=== PATIENT | male | born 1935 | race Caucasian/White ===

== ENCOUNTER 2016-05-21 16:16 | Emergency (ER) | payer OTHER, BC ==
[~2016-05-21] VITALS: Ht 170.2 cm; Wt 72.2 kg
[~2016-05-21 16:16] MED LIST: ADULT LOW DOSE81 M1 PO; ASPIRIN81 M1 PO; CEFTIN250 MG PO; CIPRO500 MG PO; COUMADIN,JANTOVE2 MG PO; FINASTERIDE5 MG PO; FLOMAX0.4 M1 PO; LISINOPRIL5 MG PO; LO-DOSE ASPIRIN81 M1 PO; METOPROLOL SUCC25 MG PO; NIASPAN,SLO-N1000 MG PO; PLAVIX75 MG PO; PRAVACHOL80 MG PO; TAMSULOSIN HCL0.4 MG PO; ULTRAM50 MG PO; VITAMIN B-12250 MCG PO; VITAMIN C100 MG PO; ZANTAC150 MG PO
[2016-05-21 17:37] LABS: ADD MIUA? YES; BILIRUBIN NEGATIVE; BLOOD MODERATE; COLOR YELLOW ((YELLOW)); GLUCOSE (STRIP) NEGATIVE; KETONES NEGATIVE; LEUKOCYTES LARGE; NITRITE POSITIVE; PROTEIN (STRIP) NEGATIVE; SPECIFIC GRAVITY 1.009 (1.000-1.030); UROBILINOGEN 0.2 MG/DL (0.2-1.0)
[2016-05-21 18:48] LABS: BACTERIA 3+; CASTS NONE SEEN /LPF; CRYSTALS NONE SEEN; EPITHELIAL CELLS NONE SEEN; MUCUS NONE SEEN; RED BLOOD CELLS 40-50 /HPF (0-5); UCUL ADDED? YES
[2016-05-21 20:24] VITALS: BP 118/68
== END 2016-05-21 20:25 ==
LOC: EME 16:16
PROVIDERS: Emergency Medicine
PROC: 0T9B70Z Drainage of Bladder with Drainage Device, Via Natural or Artificial Opening (ICD-10-PCS; principal; 2016-05-21)
DX: R33.9 Retention of urine, unspecified (principal); E11.9 Type 2 diabetes mellitus without complications; I10 Essential (primary) hypertension; I25.2 Old myocardial infarction; Z86.73 Personal history of transient ischemic attack (TIA), and cerebral infarction without residual deficits; Z87.440 Personal history of urinary (tract) infections; Z95.1 Presence of aortocoronary bypass graft; Z98.1 Arthrodesis status; Z79.82 Long term (current) use of aspirin; Z87.891 Personal history of nicotine dependence
CPT/HCPCS: 81003; 87077; 87086; 87186; 99281; 99284

== ENCOUNTER 2016-06-18 17:42 | Emergency (ER) | payer OTHER ==
[~2016-06-18] VITALS: Ht 170.2 cm; Wt 66.2 kg
[2016-06-18] MEDS ORDERED: FLOMAX0.4 MG PO (17:55)
[2016-06-18] MEDS ORDERED: IRON325 MG PO (17:55)
[2016-06-18] MEDS ORDERED: SENNA8.6 MG PO (17:56)
[2016-06-18] MEDS ORDERED: ERGOCALCIF50000 UNIT PO (17:57)
[2016-06-18] MEDS ORDERED: WARFARIN SODIU2.5 MG PO (17:58)
[2016-06-18] MEDS ORDERED: WARFARIN SODIUM3 MG PO (17:59)
[2016-06-18] MEDS ORDERED: OXAYDO5 MG PO ×2 (18:00→18:01)
[2016-06-18] MEDS ORDERED: PERCOCET 5/31 TABLET PO (18:13)
[2016-06-18] MEDS ORDERED: FLEXERIL5 MG PO (18:14)
[2016-06-18] MEDS ORDERED: DULCOLAX10 MG PR (18:14)
[2016-06-18 20:03] LABS: HEMATOCRIT 30.9 % (38.0-50.0); MCH 28.4 PG (29.0-34.0); MCHC 32.4 G/DL (30.0-36.0); MCV 87.8 FL (86-99); MEAN PLAT.VOLUME 10.3 uM^3 (9.0-12.4); PLATELET COUNT 274 K/uL (156-360); RBC DIS.WIDTH-CV 14.6 % (11.8-14.6); RBC DIS.WIDTH-SD 45.9 % (39-53); RED BLOOD COUNT 3.52 M/uL (4.00-5.50); WHITE BLOOD COUNT 7.6 K/uL (4.1-10.2)
[2016-06-18 20:19] LABS: CHLORIDE 102 mEq/L (99-109); POTASSIUM 4.2 mEq/L (3.7-5.4); SODIUM 135 mEq/L (136-147)
[2016-06-18 20:20] LABS: GLUCOSE 107 mg/dL (70-99)
[2016-06-18 20:22] LABS: ANION GAP 9 MEQ/L (2-14)
[2016-06-18 20:24] LABS: GFR ESTIMATE (CALCULATED) > 59 mL/min/
[2016-06-18 20:25] LABS: UREA NITROGEN (BUN) 17 mg/dL (9-23)
[2016-06-18 20:55] LABS: INFLUENZA A VIRAL ANTIGEN POSITIVE; INFLUENZA B VIRAL ANTIGEN NEGATIVE
[2016-06-18] MEDS ORDERED: TAMIFLU75 MG PO (22:14)
[2016-06-19 00:20] VITALS: BP 109/63
== END 2016-06-19 00:30 ==
LOC: EME 17:42
PROVIDERS: Emergency Medicine
DX: J10.1 Influenza due to other identified influenza virus with other respiratory manifestations (principal); R50.9 Fever, unspecified; S00.91XA Abrasion of unspecified part of head, initial encounter; W07.XXXA Fall from chair, initial encounter; I10 Essential (primary) hypertension; I25.2 Old myocardial infarction; Z86.73 Personal history of transient ischemic attack (TIA), and cerebral infarction without residual deficits; Z95.1 Presence of aortocoronary bypass graft; Z87.891 Personal history of nicotine dependence; Z79.01 Long term (current) use of anticoagulants
CPT/HCPCS: 71010; 80048; 81003; 83605; 85027; 87040; 87502; 99281; 99285

== ENCOUNTER 2016-07-18 19:10 | Emergency (ER) | payer OTHER ==
[~2016-07-18] VITALS: Ht 170.2 cm; Wt 67.9 kg
[~2016-07-18 19:10] MED LIST changes: +DULCOLAX10 MG PR; +ERGOCALCIF50000 UNIT PO; +FLEXERIL5 MG PO; +FLOMAX0.4 MG PO; +IRON325 MG PO; +OXAYDO5 MG PO; +PERCOCET 5/31 TABLET PO; +SENNA8.6 MG PO; +TAMIFLU75 MG PO; +WARFARIN SODIU2.5 MG PO; +WARFARIN SODIUM3 MG PO
[2016-07-18 20:35] LABS: HEMATOCRIT 36.3 % (38.0-50.0); MCH 27.4 PG (29.0-34.0); MCHC 31.1 G/DL (30.0-36.0); MCV 87.9 FL (86-99); MEAN PLAT.VOLUME 10.3 uM^3 (9.0-12.4); PLATELET COUNT 344 K/uL (156-360); RBC DIS.WIDTH-CV 14.8 % (11.8-14.6); RBC DIS.WIDTH-SD 47.2 % (39-53); RED BLOOD COUNT 4.13 M/uL (4.00-5.50); WHITE BLOOD COUNT 7.6 K/uL (4.1-10.2)
[2016-07-18 20:43] LABS: CHLORIDE 104 mEq/L (99-109); POTASSIUM 4.4 mEq/L (3.7-5.4); SODIUM 142 mEq/L (136-147)
[2016-07-18 20:45] LABS: GLUCOSE 160 mg/dL (70-99)
[2016-07-18 20:46] LABS: ANION GAP 10 MEQ/L (2-14)
[2016-07-18 20:48] LABS: GFR ESTIMATE (CALCULATED) > 59 mL/min/
[2016-07-18 20:49] LABS: UREA NITROGEN (BUN) 13 mg/dL (9-23)
[2016-07-18 20:55] LABS: TROP-I INTERPRETATION NEGATIVE; TROPONIN-I < 0.01 ng/mL (0.0-0.30)
[2016-07-18] MEDS ORDERED: TRAMADOL HCL50 MG PO (22:01)
[2016-07-18 22:19] LABS: INTER. NORMALIZED RATIO 1.4
[2016-07-18 22:27] VITALS: BP 129/82
== END 2016-07-18 23:11 | disposition home or self-care (01) ==
LOC: EME 19:10
PROVIDERS: Emergency Medicine
DX: S09.90XA Unspecified injury of head, initial encounter (principal); S46.002A Unspecified injury of muscle(s) and tendon(s) of the rotator cuff of left shoulder, initial encounter; S60.512A Abrasion of left hand, initial encounter; W19.XXXA Unspecified fall, initial encounter; Y92.009 Unspecified place in unspecified non-institutional (private) residence as the place of occurrence of the external cause; Z79.01 Long term (current) use of anticoagulants; E78.5 Hyperlipidemia, unspecified; I10 Essential (primary) hypertension; I25.2 Old myocardial infarction; Z95.1 Presence of aortocoronary bypass graft; Z95.5 Presence of coronary angioplasty implant and graft; Z86.73 Personal history of transient ischemic attack (TIA), and cerebral infarction without residual deficits; Z98.1 Arthrodesis status; Z87.891 Personal history of nicotine dependence
CPT/HCPCS: 70450; 71010; 73030; 73130; 73502; 80048; 84484; 85027; 85610; 93005; 99281; 99285; J3010

== ENCOUNTER 2016-08-12 16:07 | Emergency (ER) | payer OTHER ==
[~2016-08-12] VITALS: Ht 170.2 cm; Wt 68.3 kg
[~2016-08-12 16:07] MED LIST changes: +TRAMADOL HCL50 MG PO
[2016-08-12] MEDS ORDERED: LIPITOR10 MG PO (16:18)
[2016-08-12] MEDS ORDERED: FEOSOL325 MG PO (16:18)
[2016-08-12] MEDS ORDERED: REMERON15 M2 PO (16:19)
[2016-08-12] MEDS ORDERED: PERCOCET 5/31 TABLET PO (16:19)
[2016-08-12] MEDS ORDERED: HIPREX1 GM PO (16:19)
[2016-08-12] MEDS ORDERED: FLOMAX0.4 MG PO (16:20)
[2016-08-12] MEDS ORDERED: COUMADIN5 MG PO (16:20)
[2016-08-12] MEDS ORDERED: SENNA8.6 MG PO (16:20)
[2016-08-12] MEDS ORDERED: TYLENOL REGULA325 MG PO (16:21)
[2016-08-12] MEDS ORDERED: FLEXERIL5 MG PO (16:35)
[2016-08-12] MEDS ORDERED: ZINC OXIDE56.7 GM TP (16:36)
[2016-08-12] MEDS ORDERED: MIRALAX17 GM PO (16:36)
[2016-08-12] MEDS ORDERED: ULTRAM50 MG PO (16:36)
[2016-08-12 19:09] LABS: HEMATOCRIT 36.1 % (38.0-50.0); MCHC 31.3 G/DL (30.0-36.0); MCV 86.4 FL (86-99); MEAN PLAT.VOLUME 10.9 uM^3 (9.0-12.4); PLATELET COUNT 342 K/uL (156-360); RBC DIS.WIDTH-CV 15.3 % (11.8-14.6); RBC DIS.WIDTH-SD 48.5 % (39-53); RED BLOOD COUNT 4.18 M/uL (4.00-5.50)
[2016-08-12 19:15] LABS: CHLORIDE 109 mEq/L (99-109); POTASSIUM 4.2 mEq/L (3.7-5.4); SODIUM 143 mEq/L (136-147)
[2016-08-12 19:17] LABS: GLUCOSE 93 mg/dL (70-99)
[2016-08-12 19:18] LABS: ANION GAP 7 MEQ/L (2-14)
[2016-08-12 19:21] LABS: GFR ESTIMATE (CALCULATED) > 59 mL/min/
[2016-08-12 19:22] LABS: UREA NITROGEN (BUN) 14 mg/dL (9-23)
[2016-08-12 19:29] LABS: ADD MIUA? YES; BILIRUBIN NEGATIVE; BLOOD LARGE; COLOR YELLOW ((YELLOW)); GLUCOSE (STRIP) NEGATIVE; KETONES NEGATIVE; LEUKOCYTES SMALL; NITRITE POSITIVE; PROTEIN (STRIP) 100; SPECIFIC GRAVITY 1.006 (1.000-1.030); UROBILINOGEN 0.2 MG/DL (0.2-1.0)
[2016-08-12 19:45] LABS: PTT 45.3 (25-32)
[2016-08-12 19:47] LABS: INTER. NORMALIZED RATIO 3.1; PROTHROMBIN TIME 32.5 (9.2-11.2)
[2016-08-12] MEDS ORDERED: AMPICILLIN TRI500 MG PO (20:20)
[2016-08-12 20:32] LABS: BACTERIA 4+ /HPF; EPITHELIAL CELLS 1+ /HPF; MUCUS NONE SEEN /LPF; RED BLOOD CELLS TNTC /HPF (0-5); UCUL ADDED? YES
[2016-08-12 21:21] VITALS: BP 143/88
== END 2016-08-12 21:21 | disposition home or self-care (01) ==
LOC: EME → EDBD 16:07 → EME 21:21
PROVIDERS: Emergency Medicine
DX: N39.0 Urinary tract infection, site not specified (principal); D64.9 Anemia, unspecified; R31.9 Hematuria, unspecified; R10.31 Right lower quadrant pain; Z96.0 Presence of urogenital implants; E78.5 Hyperlipidemia, unspecified; I25.2 Old myocardial infarction; Z95.1 Presence of aortocoronary bypass graft; Z79.01 Long term (current) use of anticoagulants; Z87.891 Personal history of nicotine dependence
CPT/HCPCS: 80048; 81003; 85027; 85610; 85730; 87077; 87086; 87086 GA; 87186; 99281; 99285